=== PATIENT | female | born 1930 | race Caucasian/White ===

== ENCOUNTER 2020-01-22 10:32 | Emergency (ER) | payer MEDICARE, BC ==
--- NOTE | 2020-01-22 12:01 | ED Physician Documentation ---
History of Present Illness - Stated complaint Stated Complaint: LOW BACK PX - Chief complaint Chief Complaint: Back Pain - History obtained from History obtained from: Patient, Family - History of Present Illness Timing: How many days ago (3) Pain level max: 7 Pain level now: 5 - Additonal information Additional information: 89-year-old female with left hip pain for the past 3 days. She states it is worse with movement and better with rest. She states that she injured it while twisting and gardening. Has been taking Tylenol without relief. Called her doctor and was referred here for evaluation. No numbness or tingling, no loss of bowel or bladder control. No fall. Review of Systems Constitutional: denies: Fever, Chills GI: denies: Nausea, Vomiting, Diarrhea : denies: Dysuria, Frequency, Hesitancy Skin: denies: Rash Neurologic: denies: Focal weakness, Numbness, Confused PD PAST MEDICAL HISTORY - Past Medical History Past Medical History: No - Present Medications Home Medications: Ambulatory Orders Medication Instructions Recorded Confirmed Diclofenac Sodium [Voltaren] 4 gm TP Q6H PRN #1 gel..gram. 01/22/20 - Allergies Allergies/Adverse Reactions: Allergies Allergy/AdvReac Type Severity Reaction Status Date / Time iodine Allergy Hives Verified 01/22/20 10:51 - Living Situation Living Situation: reports: With family Living Arrangement: reports: At home - Social History Does the pt smoke?: No Does the pt have substance abuse?: No PD ED PE NORMAL - Vitals Vital signs reviewed: Yes - General General: Alert and oriented X 3, No acute distress - HEENT HEENT: Moist mucous membranes - Neck Neck: Supple, no meningeal sign - Derm Derm: Warm and dry - Extremities Extremities: No deformity (Mild tenderness to palpation over the left buttock. No bony tenderness. No pain with internal and external rotation of the hip. No tenderness over the trochanters.), Other (Normal bilateral lower extremity patellar and ankle jerk reflexes. Normal great toe extension bilaterally. no saddle anesthesia) - Neuro Neuro: Alert and oriented X 3, No motor deficit, No sensory deficit - Psych Psych: Normal mood, Normal affect Results - Vitals Vitals: Vital Signs - 24 hr 01/22/20 01/22/20 10:52 12:07 Temperature 36.8 C Heart Rate 72 78 Respiratory 18 18 Rate Blood Pressure 145/77 H 152/67 H O2 Saturation 97 99 Oxygen O2 Source Room air PD MEDICAL DECISION MAKING - ED course Complexity details: considered differential (No cauda equina, no spinal epidural abscess, no fracture, no aortic dissection or evidence of aneursym rupture), d/w patient, d/w family ED course: Patient with what appears to be a left hip strain. No indication for x-rays at this time. No fall. No trauma. We will trial her on a cane and Voltaren gel. Patient is well-appearing, nontoxic. Afebrile. No evidence of cauda equina, epidural abscess. No evidence of fracture. Ambulating well. Patient counseled regarding signs and symptoms for which I believe and urgent re-evaluation would be necessary. Patient with good understanding of and agreement to plan and is comfortable going home at this time This document was made in part using voice recognition software. While efforts are made to proofread this document, sound alike and grammatical errors may occur. Departure - Departure Disposition: 01 Home, Self Care Clinical Impression: Strain of hip Qualifiers: Encounter type: initial encounter Laterality: left Qualified Code(s): S76.012A - Strain of muscle, fascia and tendon of left hip, initial encounter Condition: Good Instructions: ED Sprain Hip Follow-Up: your,doctor in 1 week [Other] Prescriptions: Diclofenac Sodium [Voltaren] 4 gm TP Q6H PRN #1 gel..gram. PRN Reason: hip pain Comments: Use a cane in your right hand to help you walk. Return if you worsen. Follow- up with your doctor for further care. You can use the Voltaren gel up to 4 times a day on your hip. Rub it into the area that is most painful. Discharge Date/Time: 01/22/20 12:08
[2020-01-22 12:08] VITALS: BP 152/67
== END 2020-01-22 12:08 | disposition home or self-care (01) ==
LOC: ED 10:32
DX: S76.012A Strain of muscle, fascia and tendon of left hip, initial encounter (principal); X50.1XXA Overexertion from prolonged static or awkward postures, initial encounter; Y93.89 Activity, other specified
CPT/HCPCS: 99283; 99284